=== PATIENT | male | born 1980 | race Caucasian/White ===

== ENCOUNTER 2023-02-14 13:17 | Emergency (ER) | payer BC, SELFPAY ==
[2023-02-14] VITALS (23 sets, daily range): BP systolic 115–132; BP diastolic 83–91; PULSE 85–104; RESP 8–25; TEMP 36.6; O2SAT 98–100; BMI 23.4
--- NOTE | 2023-02-14 13:34 | ED.GENADUL1 ---
HPI - General Adult General Chief complaint: Nausea/Vomiting/Diarrhea Stated complaint: NAUSEA Time Seen by Provider: 02/14/23 13:29 Source: patient Mode of arrival: walk-in Limitations: no limitations History of Present Illness HPI narrative: Patient is a 42-year-old male who is presenting to the Emergency Room with flulike symptoms that are returning. Patient was sick over . Patient stated he was very sick over holiday, with fever, chills, myalgia, arthralgia, mild nausea. Patient stated he was a home for couple days, trying to increase fluids. He wanted to have [place] with his daughter at that time but he could not secondary to not feeling well. Patient had his girlfriend helping him. Patient was able to go back to work for a day and a half this past week, then he became sick again last night. Patient had multiple episodes of vomiting and loose stool. Patient's been having loose stool diarrhea for the past week, but over even day he was feeling better until last evening. Patient stated the color of his emesis was what he was drinking at the time. He has no hematochezia, melena, or hematemesis. Patient said he went home from work last night, some 12 hours, woke up and then came to the Emergency Room. Patient states multiple people's work have been sick. 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 No recent traveling. He takes no prescribed medications. Social alcohol, no illicit drugs. No medications that he takes that he would be withdrawing from. No other acute complaints. . All systems are negative except as noted/marked. All systems reviewed and otherwise negative. . Nurses note and vital signs reviewed and patient is not hypoxic. General: The patient appears well and in no apparent distress. Patient is resting comfortably on cart. Patient is not toxic, lethargic, or listless Skin: Warm, dry, no pallor noted. There is no rash noted. No petechiae, purpura. Head: Normocephalic, atraumatic Eye: Normal conjunctiva, no drainage, EOMI. PERRL Ears, Nose, Mouth, and Throat: oral mucosa is moist. Nares patent. Mouth without vesicles. Cardiovascular: Regular Rate and Rhythm, no murmur, gallop, rub. Respiratory: Patient is in no distress, no accessory muscle use, lungs are clear to auscultation, no wheezing, rales or rhonchi Back: non-tender, no CVA tenderness bilaterally to percussion. No CT LS midline pain GI: soft, no tenderness to palpation, no masses appreciated. No rebound, guarding, or rigidity noted. No flank pain bilateral, No distention Musculoskeletal: Patient has full range of motion of all of the extremities, no motor, sensory, or focal neurological deficits Neurological: A&O x3, normal speech Psychiatric: Cooperative Related Data Previous Rx's Medication Instructions Recorded dicyclomine 20 mg tablet 20 mg PO TID PRN abdominal pain #7 02/14/23 tabs ondansetron 4 mg disintegrating 4 mg PO Q4H PRN nausea and 02/14/23 tablet vomiting 3 days #6 tabs Allergies Allergy/AdvReac Type Severity Reaction Status Date / Time No Known Drug Allergies Allergy Verified 02/14/23 13:23 Exam Constitutional Vital Signs, click to edit/add: Last Vital Signs Temp 98 F 02/14/23 13:23 Pulse 98 H 02/14/23 14:51 Resp 15 02/14/23 14:51 BP 128/83 02/14/23 14:30 Pulse Ox 100 02/14/23 14:41 O2 Del Method Room Air 02/14/23 13:23 Course Vital Signs Vital signs: Vital Signs Temperature 98 F 02/14/23 13:23 Pulse Rate 103 H 02/14/23 13:23 Respiratory Rate 16 02/14/23 13:23 Blood Pressure 115/91 02/14/23 13:23 Pulse Oximetry 98 02/14/23 13:23 Oxygen Delivery Method Room Air 02/14/23 13:23 Temperature 98 F 02/14/23 13:23 Pulse Rate 98 H 02/14/23 14:51 Respiratory Rate 15 02/14/23 14:51 Blood Pressure 128/83 02/14/23 14:30 Pulse Oximetry 100 02/14/23 14:41 Oxygen Delivery Method Room Air 02/14/23 13:23 Medical Decision Making MDM Narrative Medical decision making narrative: Patient was given a total of 2 L of IV fluid. Patient has elevated white blood cell count of 20, elevated lactic acid. Patient's potassium was low, patient was given oral potassium to drink. Patient feels much better after IV fluids. Patient is drinking the oral potassium supplement along with spray. Patient stated he was having some neck pain as well, he has no signs of nuchal rigidity, no meningeal signs or symptoms. Patient has no other acute complaints. Patient has a nonsurgical abdomen, soft, nontender, no guarding, rebound, rigidity. Patient understands, no questions at discharge. Lab Data Lab results reviewed: Yes I reviewed the patient's lab results Labs: Lab Results 02/14/23 Range/Units 13:38 WBC 20.8 H (4.0-11.0) 10^3/uL RBC 4.56 L (4.70-6.10) 10^6/uL Hgb 13.9 L (14.0-18.0) g/dL Hct 38.9 L (42.0-54.0) % MCV 85.3 (80.0-94.0) fL MCH 30.5 (25.9-34.0) pg MCHC 35.7 H (29.9-35.2) g/dL RDW 11.9 (11.0-15.0) % Plt Count 330 (150-450) 10^3/uL MPV 9.7 (9.5-13.5) fL Neut % (Auto) 89.9 H (43.0-75.0) % Lymph % (Auto) 4.7 L (20.5-60.0) % Stephenson % (Auto) 4.5 (1.7-12.0) % Eos % (Auto) 0.1 L (0.9-7.0) % Baso % (Auto) 0.3 (0.2-2.0) % Neut # (Auto) 18.7 H (1.4-6.5) 10^3/uL Lymph # (Auto) 1.0 L (1.2-3.8) 10^3/uL Stephenson # (Auto) 0.9 H (0.3-0.8) 10^3/uL Eos # (Auto) 0.0 (0.0-0.7) 10^3/uL Baso # (Auto) 0.1 (0.0-0.1) 10^3/uL Abs Immat Gran (auto) 0.11 H (0.00-0.03) 10^3/uL Imm/Tot Granulo (auto) 0.5 (0.0-0.5) % Sodium 137 (136-145) mmol/L Potassium 3.1 L (3.5-5.1) mmol/L Chloride 99 (98-107) mmol/L Carbon Dioxide 31.8 (21.0-32.0) mmol/L Anion Gap 9.3 BUN 10.0 (7.0-18.0) mg/dL Creatinine 1.15 (0.70-1.30) mg/dL Est GFR ( Amer) >60 (>=60) Est GFR (Non-Af Amer) >60 (>=60) BUN/Creatinine Ratio 8.7 Glucose 100 (74-106) mg/dL Lactate 2.3 H* (0.4-2.0) mmol/L Calcium 9.0 (8.5-10.1) mg/dL Total Bilirubin 0.8 (0.2-1.0) mg/dL Direct Bilirubin 0.2 (0.0-0.2) mg/dL AST 17 (15-37) U/L ALT 27 (16-63) U/L Alkaline Phosphatase 55 (46-116) U/L Total Protein 7.0 (6.4-8.2) g/dL Albumin 3.1 L (3.4-5.0) g/dL Globulin 3.9 g/dL Albumin/Globulin Ratio 0.8 Lipase 13.0 L (16.0-77.0) U/L ECG Data Attestation: I personally reviewed and interpreted this ECG as follows: (EKG interpretation. Normal sinus rhythm at 99 beats a minute. Normal axis deviation. No acute ST elevation, no acute ectopy. QTC of 419.) Discharge Plan Discharge Chief Complaint: Nausea/Vomiting/Diarrhea Clinical Impression: Diarrhea, Flu-like symptoms, Nausea & vomiting, Dehydration Patient Disposition: Home, Self-Care Time of Disposition Decision: 15:35 Condition: Fair Prescriptions / Home Meds: New dicyclomine 20 mg tablet 20 mg PO TID PRN (Reason: abdominal pain) Qty: 7 0RF ondansetron 4 mg tablet,disintegrating 4 mg PO Q4H PRN (Reason: nausea and vomiting) 3 Days Qty: 6 0RF Instructions: Dehydration (ED), Gastroenteritis (ED), Acute Nausea and Vomiting (ED), Acute Diarrhea (ED) Additional Instructions: Continued increase fluids at home. Work note given if needed. Use Zofran and Bentyl needed to help with nausea, abdominal cramping I am not diagnosing you with gastroenteritis, I'm giving this information for educational purposes only. Stand Alone Forms: Work/School Release, Portal Instructions Referrals: Physician,Non-Staff, MD [Primary Care Provider] - 1 week
[2023-02-14 13:57] LABS: Basophils Absolute Auto 0.1 10^3/uL (0.0-0.1); Basophils Percent Auto 0.3 % (0.2-2.0); Eosinophils Percent Auto 0.1 % (0.9-7.0); Hematocrit 38.9 % (42.0-54.0); Hemoglobin 13.9 g/dL (14.0-18.0); Immature Granulocytes Abs Auto 0.11 10^3/uL (0.00-0.03); Immature Granulocytes Pct Auto 0.5 % (0.0-0.5); Lymphocytes Percent Auto 4.7 % (20.5-60.0); Mean Corpuscular HGB Conc 35.7 g/dL (29.9-35.2); Mean Corpuscular Hemoglobin 30.5 pg (25.9-34.0); Mean Corpuscular Volume 85.3 fL (80.0-94.0); Mean Platelet Volume 9.7 fL (9.5-13.5); Monocytes Absolute Auto 0.9 10^3/uL (0.3-0.8); Monocytes Percent Auto 4.5 % (1.7-12.0); Neutrophils Absolute Auto 18.7 10^3/uL (1.4-6.5); Neutrophils Percent Auto 89.9 % (43.0-75.0); Platelet Count 330 10^3/uL (150-450); Red Blood Count 4.56 10^6/uL (4.70-6.10); Red Cell Distribution Width 11.9 % (11.0-15.0); White Blood Count 20.8 10^3/uL (4.0-11.0)
[2023-02-14] MEDS: 0.9 % SODIUM CHLORIDE 1,000 ML 999 ML IV (14:03)
[2023-02-14] MEDS: ONDANSETRON PF 4 MG/2 ML VIAL IV (14:03)
[2023-02-14 14:41] LABS: Alanine Aminotransferase 27 U/L (16-63); Albumin Globulin Ratio 0.8; Albumin Level 3.1 g/dL (3.4-5.0); Alkaline Phosphatase 55 U/L (46-116); Anion Gap 9.3; Aspartate Amino Transferase 17 U/L (15-37); BUN Creatinine Ratio 8.7; Bilirubin Direct 0.2 mg/dL (0.0-0.2); Bilirubin Total 0.8 mg/dL (0.2-1.0); Carbon Dioxide 31.8 mmol/L (21.0-32.0); Chloride 99 mmol/L (98-107); Estimated GFR (African America >60 (>=60); Estimated GFR (Non-African Ame >60 (>=60); Globulin 3.9 g/dL; Glucose 100 mg/dL (74-106); Potassium 3.1 mmol/L (3.5-5.1); Sodium 137 mmol/L (136-145)
[2023-02-14 14:48] LABS: Lactate/Lactic Acid 2.3 mmol/L (0.4-2.0)
[2023-02-14] MEDS: POTASSIUM BICARBONATE/CIT 25 MEQ TABLET EFF 50 MEQ PO (14:52)
[2023-02-14] MEDS: 0.9 % SODIUM CHLORIDE 1,000 ML 1000 ML IV (15:33)
--- NOTE | 2023-02-14 18:07 | ECG_ITS ---
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
== END 2023-02-14 16:09 | disposition home or self-care (01) ==
PROVIDERS: Emergency Provider Emergency Medicine
DX: E86.0 Dehydration (principal); R11.2 Nausea with vomiting, unspecified; R19.7 Diarrhea, unspecified
CPT/HCPCS: 36415; 80053; 80076; 83605; 83690; 85025; 87804; 87811; 93005; 96361; 96374; 99285; J2405

== ENCOUNTER 2024-06-11 18:33 | Emergency (ER) | payer BC, SELFPAY ==
[2024-06-11 18:38] VITALS: BP 163/99; PULSE 120; TEMP 36.3; O2SAT 99; BMI 30.1
--- NOTE | 2024-06-11 18:44 | ECG_ITS ---
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 Measurements Intervals [place] Rate: 117 P: 61 OR: 158 QRS: 58 QRSD: 102 T: 70 QT: 328 QTc: 397 Interpretive Statements 1120 Sinus tachycardia 2440 Incomplete right bundle branch block 9140 abnormal rhythm ECG Compared to ECG 02/14/2023 13:31:39 Incomplete right bundle-branch block now present Indeterminate axis no longer present Electronically Signed On 06-11-2024 18:49:09 EDT by CAMILA RIVAS M.D.
--- NOTE | 2024-06-11 19:13 | PC.NURSE ---
i walked into this patient's room to find this patient awake and alert sitting upright on the bed, i introduced myself to this patient. this patient complains of chest pain, 1 episode of vomiting, onset today around 3:30 pm. at this time denies any chest pain and voices no other concerns and shows no signs of distress this patient is aware of the plan of care for him and voices no complaints
[2024-06-11 19:26] LABS: Basophils Absolute Auto 0.1 10^3/uL (0.0-0.1); Basophils Percent Auto 0.6 % (0.2-2.0); Eosinophils Absolute Auto 0.1 10^3/uL (0.0-0.7); Hematocrit 38.4 % (42.0-54.0); Hemoglobin 13.4 g/dL (14.0-18.0); Immature Granulocytes Abs Auto 0.04 10^3/uL (0.00-0.03); Immature Granulocytes Pct Auto 0.5 % (0.0-0.5); Lymphocytes Absolute Auto 1.6 10^3/uL (1.2-3.8); Mean Corpuscular HGB Conc 34.9 g/dL (29.9-35.2); Mean Corpuscular Hemoglobin 30.5 pg (25.9-34.0); Mean Corpuscular Volume 87.5 fL (80.0-94.0); Mean Platelet Volume 9.6 fL (9.5-13.5); Monocytes Absolute Auto 0.8 10^3/uL (0.3-0.8); Monocytes Percent Auto 8.7 % (1.7-12.0); Neutrophils Percent Auto 70.2 % (43.0-75.0); Platelet Count 265 10^3/uL (150-450); Red Blood Count 4.39 10^6/uL (4.70-6.10); Red Cell Distribution Width 12.2 % (11.0-15.0); White Blood Count 8.6 10^3/uL (4.0-11.0)
--- NOTE | 2024-06-11 19:36 | PC.NURSE ---
this patient awake and alert sitting upright on the bed this patient denies any chest pain or nausea and vomiting. this patient voices no concerns and shows no signs of distress this patient aware that now we are waiting on al of the test results to come back
[2024-06-11 19:56] LABS: Alanine Aminotransferase 12 U/L (16-63); Albumin Globulin Ratio 1.2; Albumin Level 3.5 g/dL (3.4-5.0); Alkaline Phosphatase 56 U/L (46-116); Anion Gap 12.8; Aspartate Amino Transferase 14 U/L (15-37); Bilirubin Total 0.3 mg/dL (0.2-1.0); Calcium 8.7 mg/dL (8.5-10.1); Carbon Dioxide 26.8 mmol/L (21.0-32.0); Chloride 105 mmol/L (98-107); Estimated GFR (African America >60 (>=60 mL/min/1.73m^2); Estimated GFR (Non-African Ame >60 (>=60 mL/min/1.73m^2); Glucose 126 mg/dL (74-106); Potassium 3.6 mmol/L (3.5-5.1); Sodium 141 mmol/L (136-145); Total Protein 6.5 g/dL (6.4-8.2); Troponin I High Sensitivity <4.0 pg/mL (4.0-76.1)
[2024-06-11 20:00] VITALS: BP 150/98
--- NOTE | 2024-06-11 20:04 | ED_ITS ---
HPI HPI - General Adult General Chief complaint: Chest Pain Stated complaint: chest pains Time Seen by Provider: 06/11/24 18:44 Source: patient Mode of arrival: ambulance History of Present Illness HPI narrative: states he has noticed becoming nervous some days while driving. Palms become sweaty. Ongoing for past couple of months. does not occur all the time. Today came home and ate McDonalds. States he drank Mountain dew and then took a nap. Woke up with discomfort in his lower abdomen. He got up and vomited once and then tried laying back down. His arm and hands became numb. He became more nervous and was not able to calm himself donw. Went outside to get some fresh air but this did not help. Called him mother who sent over a relative to bring him to the hospital. While waiting he developed chest pain and call 911. Arrives to hospital via [facility]. Now that he has been here about an hour symptoms are resolving and he feels better. Ex cigarette smoker who currently vapes. No history of heart disease. Did have syncopal episode about a year ago. States he watched something on You [employer]ube that upset him. Went outside and became sweaty and passed out. no recurrence Related Data Home Medications ?Medication ?Instructions ?Recorded ?Confirmed No Known Home Medications 06/11/2405/15 Allergies Allergy/AdvReac Type Severity Reaction Status Date / Time No Known Drug Allergies Allergy Verified 06/11/24 18:38 Review of Systems ROS Status of ROS 10 or more systems reviewed and unremark able except as noted in history and below PFSH PFSH Social History Little interest or pleasure in doing things: not at all Feeling down, depressed, or hopeless: not at all Exam Constitutional Vital Signs, click to edit/add: Last Vital Signs Temp 98.1 F 06/11/24 22:42 Pulse 85 06/11/24 22:42 Resp 18 06/11/24 22:42 BP 130/92 H 06/11/24 22:42 Pulse Ox 97 06/11/24 22:42 O2 Del Method Room Air 06/11/24 18:38 Common normals: no apparent distress, average body habitus, oriented x3, no limitations, healthy appearing, alert and well nourished [facility] Common normals: normocephalic and head/scalp atraumatic Respiratory Common normals: normal respiratory effort, no retractions, no use of accessory muscles and clear to auscultation bilaterally Cardio Common normals: regular rate, regular rhythm, S1 normal heart sound and S2 normal heart sound GI Common normals: Normal to inspection, nondistended, normoactive bowel sounds present, soft to palpation and non-tender Extremity Common normals: normal to inspection and full ROM Neuro Common normals: oriented x3, CN's II-XII intact bilaterally, moves all extremities and no focal motor deficits Psych Appearance: grossly normal Course Vital Signs Vital signs: Vital Signs Temperature 97.4 F L 06/11/24 18:38 Pulse Rate 120 H 06/11/24 18:38 Respiratory Rate 20 06/11/24 18:38 Blood Pressure 163/99 H 06/11/24 18:38 Pulse Oximetry 99 06/11/24 18:38 Oxygen Delivery Method Room Air 06/11/24 18:38 Temperature 98.1 F 06/11/24 22:42 Pulse Rate 85 06/11/24 22:42 Respiratory Rate 18 06/11/24 22:42 Blood Pressure 130/92 H 06/11/24 22:42 Pulse Oximetry 97 06/11/24 22:42 Oxygen Delivery Method Room Air 06/11/24 18:38 Medical Decision Making MDM Narrative Medical decision making narrative: patient has been experiencing episodes of anxiety on and off for the past 2 months. He noticed it while driving. His palms would become sweaty and he would feel nervous. Tonight he had eaten McDonalds and Drink Mountain dew. Took a nap and woke up with transient pain lower abdomen followed by vomiting. Tried to lay back down but couldn't relax. Arms and hands became numb. He felt nervous and decided to go outside for fresh air. demonstrates purse lip breathing exercises when outside. He then developed chest pain . Brought to ER by [facility]. during the time he was waiting to be seen his symptoms resolved. EKG on admission demonstrated sinus tach. He returned to NSR and rate spontaneously. Serial troponin neg. Patient advised of working diagnosis and discharged home to follow up with his PCP Lab Data Labs: Lab Results 06/11/24 06/11/24 Range/Units 19:05 22:11 WBC 8.6 (4.0-11.0) 10^3/uL RBC 4.39 L (4.70-6.10) 10^6/uL Hgb 13.4 L (14.0-18.0) g/dL Hct 38.4 L (42.0-54.0) % MCV 87.5 (80.0-94.0) fL MCH 30.5 (25.9-34.0) pg MCHC 34.9 (29.9-35.2) g/dL RDW 12.2 (11.0-15.0) % Plt Count 265 (150-450) 10^3/uL MPV 9.6 (9.5-13.5) fL Neut % (Auto) 70.2 (43.0-75.0) % Lymph % (Auto) 19.0 L (20.5-60.0) % [place] % (Auto) 8.7 (1.7-12.0) % Eos % (Auto) 1.0 (0.9-7.0) % Baso % (Auto) 0.6 (0.2-2.0) % Neut # (Auto) 6.0 (1.4-6.5) 10^3/uL Lymph # (Auto) 1.6 (1.2-3.8) 10^3/uL [place] # (Auto) 0.8 (0.3-0.8) 10^3/uL Eos # (Auto) 0.1 (0.0-0.7) 10^3/uL Baso # (Auto) 0.1 (0.0-0.1) 10^3/uL Abs Immat Gran (auto) 0.04 H (0.00-0.03) 10^3/uL Imm/Tot Granulo (auto) 0.5 (0.0-0.5) % Sodium 141 (136-145) mmol/L Potassium 3.6 (3.5-5.1) mmol/L Chloride 105 (98-107) mmol/L Carbon Dioxide 26.8 (21.0-32.0) mmol/L Anion Gap 12.8 BUN 12.0 (7.0-18.0) mg/dL Creatinine 1.20 (0.70-1.30) mg/dL Est GFR ( Amer) >60 (>=60 mL/min/1.73m^2) Est GFR (Non-Af Amer) >60 (>=60 mL/min/1.73m^2) BUN/Creatinine Ratio 10.0 Glucose 126 H (74-106) mg/dL Calcium 8.7 (8.5-10.1) mg/dL Total Bilirubin 0.3 (0.2-1.0) mg/dL AST 14 L (15-37) U/L ALT 12 L (16-63) U/L Alkaline Phosphatase 56 (46-116) U/L Troponin I High Sens <4.0 L 4.2 (4.0-76.1) pg/mL Total Protein 6.5 (6.4-8.2) g/dL Albumin 3.5 (3.4-5.0) g/dL Globulin 3.0 g/dL Albumin/Globulin Ratio 1.2 Discharge Plan Discharge Chief Complaint: Chest Pain Clinical Impression: Panic attack Patient Disposition: Home, Self-Care Prescriptions / Home Meds: No Action No Known Home Medications Print Language: Burmese Instructions: Panic Attack (ED) Additional Instructions: follow up with your doctor this week Referrals: [facility] [Primary Care Provider, Unknown] - 1 week Discharge Date/Time: 06/11/24 22:44
[2024-06-11 20:27] VITALS: PULSE 112; O2SAT 98
--- NOTE | 2024-06-11 20:58 | PC.NURSE ---
this patient updated of the redraw at 22:09 repeat trop. this patient voices no concerns and shows no signs of distress.
--- NOTE | 2024-06-11 22:16 | PC.NURSE ---
is this patient sitting upright awake and alert watching a basketball game on his cell phone. this patient aware that now we are waiting on the trop result to come back this patient denies any chest pain or nausea or vomiting or any other concerns and shows no signs of distress
[2024-06-11 22:30] VITALS: BP 130/99
[2024-06-11 22:36] LABS: Troponin I High Sensitivity 4.2 pg/mL (4.0-76.1)
[2024-06-11 22:42] VITALS: BP 130/92; PULSE 85; TEMP 36.7; O2SAT 97
--- NOTE | 2024-06-11 22:51 | PC.NURSE ---
i gave this patient verbal and written discharge orders along with 1 work note(no work 06/12/2024), and this patient voices yes to understanding these. at time of discharge this patient voices no concerns and shows no signs of distress
== END 2024-06-11 22:44 | disposition home or self-care (01) ==
PROVIDERS: Emergency Medicine; Emergency Provider Internal Medicine
DX: F41.0 Panic disorder [episodic paroxysmal anxiety] (principal); R07.9 Chest pain, unspecified; F17.290 Nicotine dependence, other tobacco product, uncomplicated
CPT/HCPCS: 36415; 71045; 80053; 84484; 85025; 93005; 99285

== ENCOUNTER 2024-06-26 23:16 | Emergency (ER) | payer BC, SELFPAY ==
--- OUTSIDE RECORDS SUMMARY | 2024-06-26 23:20 | XMS_ITS | CCD ---
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 Role Phone CATHERINE RIOS Consulting Unavailabl e REQUEST, NONE LISTED Primary Care Unavaila ble TARA ., BOB Attending Unavailable TARA ., BOB Admitting Unavailable SERVICES, [facility] Primary Care Unava ilable DIEOG LAU Attending Unavailable DIEGO LAU Attending Unavailable DIEGO LAU Referring Unavailable SERVICES, [facility] Primary Care Unava ilable Problems Problem Classification Problem Date Documented Da te Episodic/Chronic Cardiac dysrhythmias (1 source) Palpitations; Translations: [Palpitations] Onset: 06-14-2024 Episodic Essential hypertension (1 source) Hypertensive disorder Onset: 06-14-2024 Chronic Genitourinary symptoms and ill-defined conditions (3 sources) Hematuria, unspecified; Translations: [HEMATURIA UNSPECIFIED] Onset: 04-13-2022 Episodic Other gastrointestinal disorders (1 source) Diarrhea Onset: 06-14-2024 Episodic Substance-related disorders (1 source) Nicotine dependence, cigarettes, uncomplicated; Translations: [NICOTINE DEPEND CIGARETTES UNCOMP] Onset: 04-14-2022 Chronic Unclassified (1 source) SWEATY PALMS, TINGLING, DIARRHEA Onset: 06-14-2024 Urinary tract infections (1 source) Cystitis, unspecified with hematuria; Translations: [CYSTITIS UNSPECIFIED WITH HEMATURIA] Onset: 04-14-2022 Episodic Results Test Name Value Interpretation Reference Range Facil ity BASIC METABOLIC PANELon Anion gap [Moles/Vol] 4 mmol/L Low 5-15 [facility] Comment on above: Performed By: #### B MP #### [facility] ([address] [place] [address] VIR Calcium [Mass/Vol] 9.2 mg/dL Normal 8.5-10.5 [facility] Comment on above: Performed By: #### B MP #### [facility] ([address] [place] [address] VIR Chloride [Moles/Vol] 107 mmol/L Normal 98-109 [facility] Comment on above: Performed By: #### B MP #### [facility] ([address] [address] VIR CO2 [Moles/Vol] 24 mmol/L Normal 22-32 [facility] Comment on above: Performed By: #### B MP #### [facility] ([address] [address] VIR Creatinine [Mass/Vol] 0.90 mg/dL Normal 0.70-1.20 [facility] Comment on above: Result Comment: METH OD TRACEABLE TO IDMS STANDARD Performed By: #### B MP #### [facility] ([address] [address] VIR EGFR (CKD-EPI) NON-RACE DEPENDENT >^90 Normal >=60 [facility] Comment on above: Result Comment: eGFR not reported due to non-numeric value for Creatinine. Reported eGFR is based on the CKD-EPI 2021 equation that does not use a race coefficient. Performed By: #### B MP #### [facility] ([address] [address] VIR Glucose [Mass/Vol] 140 mg/dL High 65-99 [facility] Comment on above: Performed By: #### B MP #### [facility] ([address] [address] VIR Potassium [Moles/Vol] 3.4 mmol/L Low 3.5-5.0 [facility] Comment on above: Performed By: #### B MP #### [facility] ([address] [place] [address] VIR Sodium [Moles/Vol] 135 mmol/L Normal 134-146 [facility] Comment on above: Performed By: #### B MP #### [facility] ([facility]) [address] [place] [address]. [place] [address] VIR Urea nitrogen [Mass/Vol] 11 mg/dL Normal 5-23 [facility] Comment on above: Performed By: #### B MP #### [facility] ([address] [place] [address] VIR CBC WITH AUTO DIFFERENTIALon 06-14-2024 BASOPHILS ABSOLUTE COUNT (10*3/UL) BY AUTOMATED COUNT 0.1 10*3/uL Normal [facility] Comment on above: Performed By: #### C BCA #### [facility] ([address] [place] [address] VIR BASOPHILS RELATIVE PERCENT BY AUTOMATED COUNT 0.5 % Normal [facility] Comment on above: Performed By: #### C BCA #### [facility] ([address] [place] [address] VIR CELLAVISION DIFFERENTIAL TYPE AUTOMATED DIFFERENTIAL Normal [facility] Comment on above: Performed By: #### C BCA #### [facility] ([address] [place] [address] VIR Eosinophils (Bld) [#/Vol] 0.1 10*3/uL Normal [facility] Comment on above: Performed By: #### C BCA #### [facility] ([address] [place] [address] VIR EOSINOPHILS RELATIVE PERCENT BY AUTOMATED COUNT 0.8 % Normal [facility] Comment on above: Performed By: #### C BCA #### [facility] ([address] [place] [address] VIR Erythrocyte distribution width (RBC) [Ratio] 13.2 % Normal 11.5-15 [facility] Comment on above: Performed By: #### C BCA #### [facility] ([address] [address] VIR Hematocrit (Bld) [Volume fraction] 40.1 % Normal 39-50 [facility] Comment on above: Performed By: #### C BCA #### [facility] ([address] [address] VIR Hemoglobin (Bld) [Mass/Vol] 14.3 g/dL Normal 13-17 [facility] Comment on above: Performed By: #### C BCA #### [facility] ([address] [address] VIR LYMPHOCYTES ABSOLUTE COUNT (10*3/UL) BY AUTOMATED COUNT 1.5 10*3/uL Normal [facility] Comment on above: Performed By: #### C BCA #### [facility] ([address] [address] VIR LYMPHOCYTES RELATIVE PERCENT BY AUTOMATED COUNT 15.2 % Normal [facility] Comment on above: Performed By: #### C BCA #### [facility] ([address] [address] VIR MCH (RBC) [Entitic mass] 31.2 pg Normal 27-34 [facility] Comment on above: Performed By: #### C BCA #### [facility] ([address] [address] VIR MCHC (RBC) [Mass/Vol] 35.7 g/dL Normal 32-36 [facility] Comment on above: Performed By: #### C BCA #### [facility] ([address] [address] VIR MCV (RBC) [Entitic vol] 87 fL Normal 80-100 [facility] Comment on above: Performed By: #### C BCA #### [facility] ([address] [place] [address] VIR MONOCYTES ABSOLUTE COUNT (10*3/UL) BY AUTOMATED COUNT 0.8 10*3/uL Normal [facility] Comment on above: Performed By: #### C BCA #### [facility] ([address] [place] [address] VIR MONOCYTES RELATIVE PERCENT BY AUTOMATED COUNT 8.3 % Normal [facility] Comment on above: Performed By: #### C BCA #### [facility] ([address] [place] [address] VIR NEUTROPHILS ABSOLUTE COUNT BY AUTOMATED COUNT 7.7 10*3/uL Normal [facility] Comment on above: Performed By: #### C BCA #### [facility] ([address] [place] [address] VIR NEUTROPHILS RELATIVE PERCENT BY AUTOMATED COUNT 75.2 % Normal [facility] Comment on above: Performed By: #### C BCA #### [facility] ([address] [place] [address] VIR Platelet mean volume (Bld) [Entitic vol] 8.1 fL Normal 7-12 [facility] Comment on above: Performed By: #### C BCA #### [facility] ([address] [place] [address] VIR Platelets (Bld) [#/Vol] 271 10*3/uL Normal 150-450 [facility] Comment on above: Performed By: #### C BCA #### [facility] ([address] [place] [address] VIR RBC COUNT 4.59 X10E12/L Normal 4.1-5.7 [facility] Comment on above: Performed By: #### C BCA #### [facility] ([address] [place] [address] VIR WBC (Bld) [#/Vol] 10.2 10*3/uL Normal 4-11 [facility] Comment on above: Performed By: #### C BCA #### [facility] ([address] [address] VIR MAGNESIUMon 06-14-2024 Magnesium [Mass/Vol] 2.0 mg/dL Normal 1.8-2.6 [facility] Comment on above: Performed By: #### M G #### [facility] ([address] [address] VIR THYROID PROFILE INCLUDES TSH FT4on 06-14-2024 Free T4 [Mass/Vol] 1.13 ng/dL Normal 0.61-1.60 [facility] Comment on above: Performed By: #### T HYR #### [facility] ([address] [address] VIR TSH 1.08 uIU/mL Normal 0.49-4.67 [facility] Comment on above: Performed By: #### T HYR #### [facility] ([address] [address] VIR TROP I, HIGH SENSITIVITY 1 H OURon 06-14-2024 TROPONIN I, HIGH SENSITIVITY 3 ng/L Normal <21 [facility] Comment on above: Performed By: #### T NIHS1 #### [facility] ([address] [address] VIR CBC AUTO DIFFon 04-13-2022 BASO # 0.0 103/ul Normal 0.0-0.1 [facility] Comment on above: Performed By: #### C BC #### [facility] [address] [address] [address] Chip Silva Basophils/100 WBC (Bld) 0.5 % Normal 0.2-2.0 [facility] Comment on above: Performed By: #### C BC #### [facility] [address] [place] [address] Dr. Chip Silva EO # 0.2 103/ul Normal 0.0-0.7 [facility] Comment on above: Performed By: #### C BC #### [facility] [address] [place] [address] Dr. Chip Silva Eosinophils/100 WBC (Bld) 2.0 % Normal 0.9-7.0 [facility] Comment on above: Performed By: #### C BC #### [facility] [address] [place] [address] Dr. Chip Silva Erythrocyte distribution width (RBC) [Ratio] 12.5 % Normal 11.0-15.0 [facility] Comment on above: Performed By: #### C BC #### [facility] [address] [place] [address] Dr. Chip Silva Hematocrit (Bld) [Volume fraction] 45.4 % Normal 42.0-54.0 [facility] Comment on above: Performed By: #### C BC #### [facility] [address] [place] [address] Dr. Chip Silva Hemoglobin (Bld) [Mass/Vol] 15.7 g/dL Normal 14.0-18.0 [facility] Comment on above: Performed By: #### C BC #### [facility] [address] [place] [address] Dr. Chip Silva IG # 0.02 10e3/ul Normal 0.00-0.[address] [facility] Comment on above: Performed By: #### C BC #### [facility] [address] [place] [address] Dr. Chip Silva IG % 0.2 % Normal 0.0-0.[address] [facility] Comment on above: Performed By: #### C BC #### [facility] [address] [place] [address] Dr. Chip Silva LYMPH # 2.2 103/ul Normal 1.2-3.[address] [facility] Comment on above: Performed By: #### C BC #### [facility] [address] [place] [address] Dr. Chip Silva Lymphocytes/100 WBC (Bld) 26.7 % Normal 20.5-60.0 [facility] Comment on above: Performed By: #### C BC #### [facility] [address] [place] [address] Dr. Chip Silva MANUAL DIFF REQ NO Normal [facility] Comment on above: Performed By: #### C BC #### [facility] [address] [place] [address] Dr. Chip Silva MCH (RBC) [Entitic mass] 30.7 pg Normal 25.9-34.[address] [facility] Comment on above: Performed By: #### C BC #### [facility] [address] [place] [address] Dr. Chip Silva MCHC (RBC) [Mass/Vol] 34.6 g/dL Normal 29.9-35.[address] [facility] Comment on above: Performed By: #### C BC #### [facility] [address] [place] [address] Dr. Chip Silva MCV (RBC) [Entitic vol] 88.7 fL Normal 80.0-94.[address] [facility] Comment on above: Performed By: #### C BC #### [facility] [address] [place] [address] Dr. Chip Silva MONO # 0.8 103/ul Normal 0.3-0.[address] [facility] Comment on above: Performed By: #### C BC #### [facility] [address] [place] [address] Dr. Chip Silva Monocytes/100 WBC (Bld) 9.6 % Normal 1.7-12.[address] [facility] Comment on above: Performed By: #### C BC #### [facility] [address] [place] [address] Dr. Chip Silva NEUT # 4.9 103/ul Normal 1.4-6.[address] [facility] Comment on above: Performed By: #### C BC #### [facility] [address] [place] [address] Dr. Chip Silva Neutrophils/100 WBC (Bld) 61.0 % Normal 43.0-75.0 [facility] Comment on above: Performed By: #### C BC #### [facility] [address] [place] [address] Dr. Chip Silva Platelet mean volume (Bld) [Entitic vol] 9.8 fL Normal 9.5-13.5 [facility] Comment on above: Performed By: #### C BC #### [facility] [address] [place] [address] Dr. Chip Silva PLT 280 103/ul Normal 150-450 [facility] Comment on above: Performed By: #### C BC #### [facility] [address] [place] [address] Dr. Chip Silva RBC 5.12 106/ul Normal 4.70-6.10 [facility] Comment on above: Performed By: #### C BC #### [facility] [address] [place] [address] Dr. Chip Silva WBC 8.1 103/ul Normal 4.0-11.0 [facility] Comment on above: Performed By: #### C BC #### [facility] [address] [place] [address] Dr. Chip Silva CULTURE URINEon 04-13-2022 CULTURE URINE Culture Observations: NO GROWTH. Normal [facility] Comment on above: Performed By: #### U RCX #### [facility] [address] [place] [address] Dr. Chip Silva ER URINE PROFILEon 3 Bilirubin Ql (U) Negative Normal NEGATIVE [facility] Comment on above: Performed By: #### U MICRO, ERUR #### [facility] [address] [place] [address] Dr. Chip Silva Clarity (U) CLEAR Normal CLEAR [facility] Comment on above: Performed By: #### U MICRO, ERUR #### [facility] [address] [place] [address] Dr. Chip Silva Color (U) YELLOW Normal YELLOW [facility] Comment on above: Performed By: #### U MICRO, ERUR #### [facility] [address] [address] [address] Chip SOSA A micrscopic examination will be performed if indicated. Normal [facility] Comment on above: Performed By: #### U MICRO, ERUR #### [facility] [address] [address] [address] Chip Silva Glucose Ql (U) Negative Normal NEGATIVE [facility] Comment on above: Performed By: #### U MICRO, ERUR #### [facility] [address] [address] [address] Chip Silva Hemoglobin Ql (U) MODERATE Abnormal NEGATIVE [facility] Comment on above: Performed By: #### U MICRO, ERUR #### [facility] [address] [place] [address] Dr. Chip Silva Ketones Ql (U) Negative Normal NEGATIVE [facility] Comment on above: Performed By: #### U MICRO, ERUR #### [facility] [address] [address] [address] Chip Silva LEUKOCYTES SMALL Abnormal NEGATIVE [facility] Comment on above: Performed By: #### U MICRO, ERUR #### [facility] [address] [address] [address] Chip Silva Nitrite Ql (U) Negative Normal NEGATIVE [facility] Comment on above: Performed By: #### U MICRO, ERUR #### [facility] [address] [address] [address] Chip Silva pH (U) 5.5 [pH] Normal 5-[address] [facility] Comment on above: Performed By: #### U MICRO, ERUR #### [facility] [address] [address] [address] Chip Silva SPEC GRAVITY 1.025 Normal 1.005-<=1.025 [facility] Comment on above: Performed By: #### U MICRO, ERUR #### [facility] [address] [place] [address] Dr. Chip Silva UA PROTEIN Negative Normal NEGATIVE/ TRACE [facility] Comment on above: Performed By: #### U MICRO, ERUR #### [facility] [address] [address] [address] Chip Silva UR MICRO IND INDICATED Normal [facility] Comment on above: Performed By: #### U MICRO, ERUR #### [facility] [address] [place] [address] Dr. Chip Silva Urobilinogen Qn (U) 0.2 {Kristian'U}/dL Normal 0.2 - 1. 0 [facility] Comment on above: Performed By: #### U MICRO, ERUR #### [facility] [address] [place] [address] Dr. Chip Silva PROF CHEM 8 (BAS METB)on Anion gap [Moles/Vol] 13.1 mmol/L Normal [facility] Comment on above: Performed By: #### B MP #### [facility] [address] [place] [address] Dr. Chip Silva Calcium [Mass/Vol] 9.4 mg/dL Normal 8.5-10.1 [facility] Comment on above: Performed By: #### B MP #### [facility] [address] [place] [address] Dr. Chip Silva Chloride [Moles/Vol] 105 mmol/L Normal 98-107 [facility] Comment on above: Performed By: #### B MP #### [facility] [address] [place] [address] Dr. Chip Silva CO2 [Moles/Vol] 25.8 mmol/L Normal 21.0-32.0 [facility] Comment on above: Performed By: #### B MP #### [facility] [address] [place] [address] Dr. Chip Silva Creatinine [Mass/Vol] 1.06 mg/dL Normal 0.70-1.30 [facility] Comment on above: Performed By: #### B MP #### [facility] [address] [place] [address] Dr. Chip Silva EGFR-AF GERMAN >60 Normal >=60 [facility] Comment on above: Performed By: #### B MP #### [facility] [address] [address] [address] Chip Silva EGFR-NON AF GERMAN >60 Normal >=60 [facility] Comment on above: Performed By: #### B MP #### [facility] [address] [address] [address] Chip Silva Glucose [Mass/Vol] 138 mg/dL Critically high 74-106 [facility] Comment on above: Performed By: #### B MP #### [facility] [address] [address] [address] Chip Silva Potassium [Moles/Vol] 3.9 mmol/L Normal 3.5-5.1 [facility] Comment on above: Performed By: #### B MP #### [facility] [address] [address] [address] Chip Silva Sodium [Moles/Vol] 140 mmol/L Normal 136-145 [facility] Comment on above: Performed By: #### B MP #### [facility] [address] [address] [address] Chip Silva Urea nitrogen [Mass/Vol] 9.0 mg/dL Normal 7.0-18.0 [facility] Comment on above: Performed By: #### B MP #### [facility] [address] [address] [address] Chip Silva Urea nitrogen/Creatinine [Mass ratio] 8.5 mg/mg Normal [facility] Comment on above: Performed By: #### B MP #### [facility] [address] [address] [address] Chip Silva PROTIMEon 04-13-2022 INR Coag (PPP) [Relative time] 1.01 {INR} Normal [facility] Comment on above: Performed By: #### P T, PTT #### [facility] [address] [address] [address] Chip Silva INR GUIDELINES SEE BELOW Normal [facility] Comment on above: Result Comment: BAKARI RED INR: 2.0 - 3.0 CONDITIONS NOT LISTED BELOW 2.5 - 3.5 FOR PROSTHETIC HEART VALVE REPLACEMENT 2.5 - 3.5 RECURRENT THROMBOSIS Performed By: #### P T, PTT #### [facility] [address] [place] [address] Dr. Chip Silva PT Coag (PPP) [Time] 10.7 s Normal 9.0-11.6 [facility] Comment on above: Performed By: #### P T, PTT #### [facility] [address] [place] [address] Dr. Chip Silva PTTon 04-13-2022 aPTT Coag (Bld) [Time] 30.6 s Normal 22.3-36.2 [facility] Comment on above: Performed By: #### P T, PTT #### [facility] [address] [place] [address] Dr. Chip Silva URINE MICROSCOPIC ONLYon BACTERIA TRACE Abnormal NONE SEEN [facility] Comment on above: Performed By: #### U MICRO, ERUR #### [facility] [address] [place] [address] Dr. Chip Silva Bacteria identified Cx Nom (U) INDICATED Normal [facility] Comment on above: Performed By: #### U MICRO, ERUR #### [facility] [address] [place] [address] Dr. Chip Silva CAST NONE SEEN Normal NONE SEEN [facility] Comment on above: Performed By: #### U MICRO, ERUR #### [facility] [address] [place] [address] Dr. Chip Silva Crystals LM Nom (Urine sed) NONE SEEN Normal NONE SEEN [facility] Comment on above: Performed By: #### U MICRO, ERUR #### [facility] [address] [place] [address] Dr. Chip Silva Epithelial cells LM Ql (Urine sed) RARE Normal NONE SEEN /RARE [facility] Comment on above: Performed By: #### U MICRO, ERUR #### [facility] [address] [place] [address] Dr. Chip Silva MUCOUS NONE SEEN Normal NONE SEEN [facility] Comment on above: Performed By: #### U MICRO, ERUR #### [facility] [address] [place], [place] [address] Dr. Chip Silva RBC 10-20 Abnormal 0-[address] [facility] Comment on above: Performed By: #### U MICRO, ERUR #### [facility] [address] [place], [place] [address] Dr. Chip Silva WBC 5-10 Abnormal NONE SEEN The [facility] Comment on above: Performed By: #### U MICRO, ERUR #### [facility] [address] [place], [place] [address] Dr. Chip Silva Encounters Encounter Date Encounter Type Care Provider Facility Start: 06-19-2024 End: 06-19-[address] [facility] Start: 06-14-2024 End: 06-14-2024 Emergency department patient visit [facility] Start: 04-13-2022 End: 04-13-2022 ambulatory CATHERINE BAPTISTE . Facility: Payers Date Payer Category Payer Unknown [id number] 1980 Unknown [id number] 1980 Unknown [id number] 1980 Unknown [id number] 1959 Unknown [id number] Summary Purpose Family History No Family History Records FoundNo Family History Records Found Advance Directives No Advanced Directives Records FoundNo Advanced Directives Records Found Additional Source Comments (unrecognized sect ion and content) No Status Records FoundNo Status Records Found INFORMATION SOURCE (unrecogn ized section and content) DATE CREATED AUTHOR 04/15/2022 [facility] DATE CREATED AUTHOR AUTHOR'S ORGANIZ ATION 06/20/2024 [facility] FOR RECORDS PERTAINING TO PATIENTS WHO ARE OR HAVE BEEN ENROLLED IN A CHEMICAL DEPENDENCY/SUBSTANCEABUSE PROGRAM, SOME INFORMATION MAY BE OMITTED. This clinical summary was aggregated from multiple sources. Caution should be exercised in using it in the provision of clinical care. This summary normalizes information from multiple sources, and as a consequence, information in this document may materially change the coding, format and clinical context of patient data. In addition, data may be omitted in some cases. CLINICAL DECISIONS SHOULD BE BASED ON THE PRIMARY CLINICAL RECORDS. [facility], [facility]. provides no warranty or guarantee of the accuracy or completeness of information in this document.
[2024-06-26 23:26] VITALS: BP 142/90; PULSE 99; TEMP 36.8; O2SAT 98; BMI 44.6
--- NOTE | 2024-06-26 23:49 | ED.ANXIETY1 ---
HPI - Anxiety General Chief Complaint: Anxiety Stated Complaint: ANXIETY Time Seen by Provider: 06/26/24 23:42 Source: patient Mode of arrival: walk-in Limitations: no limitations History of Present Illness HPI narrative: history of anxiety. is currently of buspar and hydroxyzine per his PCP. [place] this was helping him but today became distress about the amount of responsibility at his job. Became shaky. Took a walk and ate dark chocolate to calm himself but it did not work. Came home and took vistaril and did not feel it was helping. Came to the ER. Now that he is here, he is starting to calm down Related Data Home Medications ?Medication ?Instructions ?Recorded ?Confirmed buspirone 5 mg tablet 5 mg PO BID 06/26/24 06/26/24 hydroxyzine pamoate 50 mg capsule 50 mg PO Q8H PRN itching 06/26/24 06/26/24 Allergies Allergy/AdvReac Type Severity Reaction Status Date / Time No Known Drug Allergies Allergy Verified 06/11/24 18:38 Review of Systems ROS Status of ROS 10 or more systems reviewed and unremarkable except as noted in history and below PFSH PFSH Social History Little interest or pleasure in doing things: not at all Feeling down, depressed, or hopeless: not at all Exam Constitutional Vital Signs, click to edit/add: Last Vital Signs Temp 98.3 F 06/26/24 23:26 Pulse 99 H 06/26/24 23:26 Resp 20 06/26/24 23:26 BP 142/90 H 06/26/24 23:26 Pulse Ox 98 06/26/24 23:26 Common normals: no apparent distress, average body habitus, oriented x3, no limitations, healthy appearing, alert and well nourished [facility] Common normals: normocephalic and head/scalp atraumatic Eye Common normals: PERRL, EOMs intact bilaterally and conjunctivae normal Respiratory Common normals: normal respiratory effort, no retractions, no use of accessory muscles and clear to auscultation bilaterally Cardio Common normals: regular rate, regular rhythm, S1 normal heart sound and S2 normal heart sound Extremity Common normals: normal to inspection and full ROM Neuro Common normals: oriented x3, CN's II-XII intact bilaterally, moves all extremities and no focal motor deficits Psych Mood and affect: anxious Course Vital Signs Vital signs: Vital Signs Temperature 98.3 F 06/26/24 23:26 Pulse Rate 99 H 06/26/24 23:26 Respiratory Rate 20 06/26/24 23:26 Blood Pressure 142/90 H 06/26/24 23:26 Pulse Oximetry 98 06/26/24 23:26 Temperature 98.3 F 06/26/24 23:26 Pulse Rate 99 H 06/26/24 23:26 Respiratory Rate 20 06/26/24 23:26 Blood Pressure 142/90 H 06/26/24 23:26 Pulse Oximetry 98 06/26/24 23:26 MDM - Anxiety MDM Narrative Medical decision making narrative: patient with known history of anxiety. Anxiety attack tonight. Took vistaril before coming in and is now feeling better. observed in the department without further intervention and continued to improved. Discharged home in good condition Discharge Plan Discharge Chief Complaint: Anxiety Clinical Impression: Acute anxiety Patient Disposition: Home, Self-Care Prescriptions / Home Meds: No Action hydroxyzine pamoate 50 mg capsule 50 mg PO Q8H PRN (Reason: itching) buspirone 5 mg tablet 5 mg PO BID Print Language: German Instructions: Anxiety (ED) Referrals: [facility] [Primary Care Provider, Unknown] - 1 week
[2024-06-27 01:18] VITALS: BP 138/74
== END 2024-06-27 01:19 | disposition home or self-care (01) ==
PROVIDERS: Emergency Provider Internal Medicine
DX: F41.9 Anxiety disorder, unspecified (principal); Z79.899 Other long term (current) drug therapy
CPT/HCPCS: 99283